=== PATIENT | female | born 1965 | race Caucasian/White ===

== ENCOUNTER 2019-05-01 12:05 | Outpatient (CLI) | payer BC ==
--- NOTE | 2019-05-01 13:56 | RAD ---
Arthrogram left hip HISTORY: Pain. Labral tear. FINDINGS: After explaining the procedure and answering all questions, the anterior aspect of the left hip was prepped and draped in usual sterile fashion. Sterile technique, buffered local anesthesia, fluoroscopic guidance, and an anterior approach were used to carefully advance the tip of a 22-gauge spinal needle to the joint capsule at the level of the femoral neck. Total volume of 10 cc liquid mixture containing normal saline, 1% lidocaine, iodinated contrast, and small amounts of gadolinium and epinephrine were then instilled into the joint capsule under fluoroscopic control needle was removed and spot images obtained. Patient tolerated the procedure wel l and was transferred to MRI in good condition for further imaging. Fluoroscopy time 0.6 minutes. IMPRESSION: Technically successful left hip arthrogram. MRI is pending.
--- NOTE | 2019-05-01 14:25 | MRI ---
Exam: Left hip MRI post arthrogram contrast: HISTORY: Left hip acetabular labral tear FINDINGS: Exam performed following left hip arthrogram: FINDINGS: There is minimal increased signal in the left gluteus medias tendon evidence for some tendinopathy wi th a small amount of fluid in the subareolar gluteus minimus bursa. No abnormal marrow signal to suggest avascular necrosis, fracture, or acute stress injury. No evidence for an acetabular labral tear. 2.6 cm diameter left ovarian cyst. Common hamstring tendon insertion ranges are unremarkable bilaterally. IMPRESSION: Left gluteus medius tendinopathy and minimal fluid within the subclavius minimus bursa evidence for s ome bursitis. No evidence for significant acute labral tear.
== END 2019-05-01 12:06 | disposition home or self-care (01) ==
LOC: RAD 12:05
PROVIDERS: ATTEND Orthopaedic Surgery
DX: S73.192A Other sprain of left hip, initial encounter (principal); M70.72 Other bursitis of hip, left hip
CPT/HCPCS: 27093

== ENCOUNTER 2021-05-18 22:13 | Inpatient (IN) | payer BC ==
[2021-05-18] MEDS ORDERED: Nitroglycerin 2% Ointment 1 INCH/1 GM Packet ONE (22:26)
[2021-05-18 22:41] LABS: Hemoglobin 15.4 g/dL (12.0-16.0); Mean Corpuscular Hemoglobin 29.2 pg (27.0-31.0); Mean Corpuscular Volume 88.5 fL (78.0-98.0); Mean Platelet Volume 8.2 fL (7.4-10.4); Platelet Count 253 thou/uL (130-400); RBC Distribution Width 12.4 % (11.5-14.5); Red Blood Cell (RBC) Count 5.29 mill/uL (4.20-5.40); White Blood Cell (WBC) Count 10.2 thou/uL (4.8-10.8)
[2021-05-18 22:57] LABS: Eosinophils 3 % (0-10); Lymphocytes 45 % (21-51); MDiff Complete? YES; Monocytes 7 % (0-10); Neutrophil 28 % (42-75); Platelet Morphology Comment Appears Adequate; RBC Morphology Normal; Reactive Lymphocytes 16 % (0-10)
[2021-05-18 23:04] LABS: ALT (SGPT) 17 U/L (8-55); AST (SGOT) 21 U/L (5-34); Albumin 4.3 g/dL (3.5-5.0); Alkaline Phosphatase 97 U/L (40-110); Anion Gap 18 mmol/L (10-20); BUN (Urea Nitrogen) 16 mg/dL (9.8-20.1); Bilirubin, Total 0.4 mg/dL (0.2-1.2); Calc. Creatinine Clearance 0 mL/min (70-130); Calcium 10.2 mg/dL (7.8-10.44); Carbon Dioxide 21 mmol/L (22-29); Chloride 104 mmol/L (98-107); Globulin 3.8 g/dL (2.4-3.5); Glucose 108 mg/dL (70-105); Protein, Total 8.1 g/dL (6.0-8.3); Sodium 140 mmol/L (136-145)
[2021-05-18] MEDS ORDERED: Ondansetron ODT 4 MG TAB ONE (23:49)
[2021-05-18] MEDS ORDERED: Aspirin Chewable 81 MG TAB ONE (23:50)
[2021-05-18] MEDS ORDERED: Ondansetron PF 4 MG/2 ML Vial ONE (23:51)
[2021-05-18] MEDS ORDERED: Meclizine HCl 25 MG TAB ONE (23:51)
[2021-05-18] MEDS ORDERED: Magnesium 2 GM/50 ML BAG (IN WATER) ONE (23:55)
[2021-05-18] MEDS ORDERED: Potassium Chloride 20 MEQ TAB ONE (23:56)
[2021-05-19 00:39] LABS: Troponin I Less than 0.010 ng/mL (< 0.028)
[2021-05-19 02:31] VITALS: BMI 33.4
[2021-05-19 05:07] LABS: Troponin I Less than 0.010 ng/mL (< 0.028)
[2021-05-19] MEDS ORDERED: Acetaminophen 325 MG TAB PO PRN (08:56)
[2021-05-19] MEDS ORDERED: HYDROcodone/Acetaminophen 7.5/325 mg Tablet PO PRN (08:56)
[2021-05-19] MEDS: Potassium Chloride 20 MEQ in Premix Bag 1 BAG IVPB SCH (15:25)
[2021-05-19] MEDS: Aspirin 325 mg Enteric Coated Tablet PO SCH (15:25)
[2021-05-20] MEDS: Potassium Chloride 10 MEQ in Premix Bag 1 BAG IVPB SCH ×2 (00:25→02:25)
[2021-05-20] MEDS: Potassium Chloride 20 MEQ in Premix Bag 1 BAG IVPB SCH (00:30)
[2021-05-20 05:01] LABS: Hemoglobin A1c 5.1 % (4.0-6.0)
[2021-05-20 05:28] LABS: Band 2 % (5-11); Eosinophils 3 % (0-10); Hemoglobin 13.9 g/dL (12.0-16.0); Lymphocytes 44 % (21-51); MDiff Complete? YES; Mean Corpuscular HGB CONC 32.1 g/dL (32.0-36.0); Mean Corpuscular Hemoglobin 28.8 pg (27.0-31.0); Mean Corpuscular Volume 89.8 fL (78.0-98.0); Mean Platelet Volume 8.2 fL (7.4-10.4); Monocytes 4 % (0-10); Neutrophil 40 % (42-75); Platelet Count 193 thou/uL (130-400); RBC Distribution Width 12.5 % (11.5-14.5); Reactive Lymphocytes 7 % (0-10); White Blood Cell (WBC) Count 5.1 thou/uL (4.8-10.8)
[2021-05-20 05:44] LABS: Anion Gap 10 mmol/L (10-20); BUN (Urea Nitrogen) 18 mg/dL (9.8-20.1); Calc. Creatinine Clearance 116 mL/min (70-130); Calcium 8.9 mg/dL (7.8-10.44); Carbon Dioxide 22 mmol/L (22-29); Cardiac Risk 4.5 (Less than 4.5); Chloride 111 mmol/L (98-107); Cholesterol 237 mg/dl (< 200 Desired); Glucose 105 mg/dL (70-105); HDL Cholesterol 53 mg/dL (>60 Neg Risk); LDL Cholesterol, Calculated 159 mg/dL; Potassium 4.2 mmol/L (3.5-5.1); Sodium 139 mmol/L (136-145); Triglycerides 127 mg/dL (Less than 150)
[2021-05-20 07:52] VITALS: TEMP 97.6
[2021-05-20] MEDS: Aspirin 325 mg Enteric Coated Tablet PO SCH (09:47)
[2021-05-20 12:10] VITALS: BP 166/87
[2021-05-20 13:31] LABS: Creatinine, Urine 59.35 mg/dL (47-110); Potassium, Urine 85.1 mmol/L
== END 2021-05-20 13:17 | disposition home or self-care (01) | DRG 313 ==
LOC: ERS 22:13 → 2NO 23:41 → OBSVTOIN 05-20 11:11
PROVIDERS: ADMIT Student in an Organized Health Care Education/Training Program; ATTEND Family Medicine
DX: R07.89 Other chest pain (principal); I10 Essential (primary) hypertension; I49.3 Ventricular premature depolarization; I45.81 Long QT syndrome; E87.6 Hypokalemia; R42 Dizziness and giddiness; I07.1 Rheumatic tricuspid insufficiency; Z87.891 Personal history of nicotine dependence; Z86.16 Personal history of COVID-19
CPT/HCPCS: 36415; 71045; 78452; 80048; 80053; 80061; 82533; 82570; 83036; 83735; 84132; 84133; 84443; 84484; 85007; 85025; 85027; 85379; 93005; 93010; 93017; 93306; 94760; 96365; 96375; A9500; G0378; J2405; J3475; J3480; Q0162

== ENCOUNTER 2021-06-10 10:59 | Outpatient (CLI) | payer BC | END 2021-06-10 11:00 | disposition home or self-care (01) | LOC: BICMAMMO 10:59 | PROVIDERS: ATTEND Family Medicine | DX: Z12.31 Encounter for screening mammogram for malignant neoplasm of breast (principal) | CPT/HCPCS: 77063; 77067 ==

== ENCOUNTER 2022-05-24 12:33 | Outpatient (CLI) | payer BC | END 2022-05-24 12:34 | disposition home or self-care (01) | LOC: ULT 12:33 | PROVIDERS: ATTEND Family Medicine | DX: N83.209 Unspecified ovarian cyst, unspecified side (principal); D25.9 Leiomyoma of uterus, unspecified | CPT/HCPCS: 76856 ==

== ENCOUNTER 2022-06-16 07:46 | Outpatient (CLI) | payer BC | END 2022-06-16 07:47 | disposition home or self-care (01) | LOC: BICMAMMO 07:46 | PROVIDERS: ATTEND Family Medicine | DX: Z12.31 Encounter for screening mammogram for malignant neoplasm of breast (principal) | CPT/HCPCS: 77063; 77067 ==

== ENCOUNTER 2023-08-15 02:31 | Emergency (ER) | payer BC ==
[2023-08-15] MEDS ORDERED: Ondansetron PF 4 MG/2 ML Vial ONE (02:43)
[2023-08-15 03:21] LABS: #Basophils 0.1 thou/uL (0.0-0.2); #Eosinphils 0.1 thou/uL (0.0-0.7); #Monocytes 0.4 thou/uL (0.11-0.59); #Neutrophils 3.8 thou/uL (1.40-6.50); %Basophils 1.7 % (0.0-1.0); %Eosinophils 1.8 % (0.0-10.0); %Lymphocytes 19.3 % (21.0-51.0); %Monocytes 7.2 % (0.0-10.0); %Neutrophils 69.8 % (42.0-75.0); Hematocrit 43.1 % (36.0-47.0); Hemoglobin 13.9 g/dL (12.0-16.0); Mean Corpuscular HGB CONC 32.3 g/dL (32.0-36.0); Mean Corpuscular Hemoglobin 28.8 pg (27.0-31.0); Mean Corpuscular Volume 89.4 fl (78.0-98.0); Platelet Count 199 10x3/uL (130-400); RBC Distribution Width 12.7 % (11.5-14.5); Red Blood Cell (RBC) Count 4.82 mill/uL (4.20-5.40); White Blood Cell (WBC) Count 5.4 10x3/uL (4.8-10.8)
[2023-08-15 03:47] LABS: Troponin I Less than 0.010 ng/mL (< 0.028)
[2023-08-15 03:50] LABS: ALT (SGPT) 18 U/L (8-55); AST (SGOT) 22 U/L (5-34); Albumin 3.7 g/dL (3.5-5.0); Alkaline Phosphatase 81 U/L (40-110); Anion Gap 14 mmol/L (10-20); BUN (Urea Nitrogen) 12 mg/dL (9.8-20.1); Bilirubin, Total 0.5 mg/dL (0.2-1.2); Calc. Creatinine Clearance 0 mL/min (70-130); Calcium 9.2 mg/dL (7.8-10.44); Carbon Dioxide 22 mmol/L (22-29); Chloride 106 mmol/L (98-107); Estimated GFR 76; Globulin 3.1 g/dL (2.4-3.5); Glucose 119 mg/dL (70-105); Lipase 40 U/L (8-78); Potassium 3.3 mmol/L (3.5-5.1); Protein, Total 6.8 g/dL (6.0-8.3); Sodium 139 mmol/L (136-145)
[2023-08-15] MEDS ORDERED: Potassium Chloride 20 MEQ TAB ONE (04:07)
[2023-08-15 04:54] LABS: Bacteria/HPF 3+ HPF (None Seen); Bilirubin Negative (Negative); Blood, Urine Negative (Negative); CAUTI Indications for Culture Alt mental st,lethar; Clarity Turbid (Clear); Glucose, Urine (Dipstick) Normal (Negative); Ketone, Urine Trace mg/dL (Negative); Leukocyte 500 Leu/uL (Negative); Nitrite Negative (Negative); Protein, Urine (Dipstick) Negative (Neg-Trace); RBC/HPF 0-3 HPF (0-3); Specific Gravity, Urine 1.005 (1.002-1.036); Squamous Epithelial 0-3 HPF (0-3); Urobilinogen Normal mg/dL (Less than 2); WBC/HPF 21-50 HPF (0-3); pH, Urine 7.5 (5.0-9.0)
[2023-08-15 04:56] LABS: Troponin I Less than 0.010 ng/mL (< 0.028)
[2023-08-15 04:57] LABS: Urine Culture Reflex Yes Yes
== END 2023-08-15 06:46 | disposition home or self-care (01) ==
LOC: ERS 02:31
DX: E87.6 Hypokalemia (principal); N39.0 Urinary tract infection, site not specified; E78.00 Pure hypercholesterolemia, unspecified; Z87.891 Personal history of nicotine dependence; Z79.899 Other long term (current) drug therapy
CPT/HCPCS: 36415; 71045; 80053; 81001; 83690; 83735; 83880; 84443; 84484; 85025; 87086; 93005; 96374; J2405